=== PATIENT | female | born 1945 | race Two or more races ===

== ENCOUNTER 2020-01-22 09:38 | Outpatient (CLI) | payer OTHER ==
[~2020-01-22 09:38] MED LIST: TESSALON PERLE100 MG PO; TUSSI-ORGANIDI118 M1 PO; TUSSIONEX PENNKI5 ML PO
== END 2020-01-22 09:44 | disposition home or self-care (01) ==
LOC: TOM 09:38
PROVIDERS: ATTEND Internal Medicine Gastroenterology
DX: K59.09 Other constipation (principal); R10.11 Right upper quadrant pain; R12 Heartburn; R19.5 Other fecal abnormalities

== ENCOUNTER 2020-12-14 00:45 | Emergency (ER) | payer OTHER ==
[~2020-12-14] VITALS: Ht 160 cm; Wt 86.2 kg
[2020-12-14] MEDS ORDERED: FAMOTIDINE40 MG PO (01:01)
[2020-12-14] MEDS ORDERED: METOPROLOL SUCC50 MG PO (01:02)
[2020-12-14] MEDS ORDERED: PANTOPRAZOLE SO40 MG PO (01:02)
[2020-12-14] MEDS ORDERED: RAMIPRIL10 MG PO (01:02)
[2020-12-14] MEDS ORDERED: NABUMETONE750 MG PO (01:02)
[2020-12-14] MEDS ORDERED: METFORMIN HCL500 M1 PO (01:03)
[2020-12-14] MEDS ORDERED: RESTORIL30 MG PO (01:03)
[2020-12-14] MEDS ORDERED: ALPRAZOLAM0.5 MG PO (01:03)
[2020-12-14] MEDS ORDERED: SIMVASTATIN40 MG PO (01:03)
== END 2020-12-14 03:46 | disposition home or self-care (01) ==
LOC: ER 00:45
DX: H53.8 Other visual disturbances (principal); I16.1 Hypertensive emergency; I10 Essential (primary) hypertension

== ENCOUNTER → 2021-01-02 08:50 | Outpatient (CLI) | payer OTHER ==
[~2021-01-02 08:50] MED LIST changes: +ALPRAZOLAM0.5 MG PO; +FAMOTIDINE40 MG PO; +METFORMIN HCL500 M1 PO; +METOPROLOL SUCC50 MG PO; +NABUMETONE750 MG PO; +PANTOPRAZOLE SO40 MG PO; +RAMIPRIL10 MG PO; +RESTORIL30 MG PO; +SIMVASTATIN40 MG PO
== END | disposition home or self-care (01) ==
LOC: NUCLEAR 08:50
DX: I74.3 Embolism and thrombosis of arteries of the lower extremities (principal)

== ENCOUNTER 2021-01-03 09:48 | Outpatient (CLI) | payer OTHER | END 2021-01-03 09:49 | disposition home or self-care (01) | LOC: NUCLEAR 09:48 | DX: I74.3 Embolism and thrombosis of arteries of the lower extremities (principal) ==

== ENCOUNTER 2021-04-17 09:48 | Outpatient (CLI) | payer OTHER | END 2021-04-17 09:56 | disposition home or self-care (01) | LOC: SONOGRAMA 09:48 | PROVIDERS: ATTEND Internal Medicine Gastroenterology | DX: K59.09 Other constipation (principal); R12 Heartburn; K62.5 Hemorrhage of anus and rectum; R14.0 Abdominal distension (gaseous); K31.7 Polyp of stomach and duodenum ==

== ENCOUNTER 2021-06-15 08:17 | Outpatient (CLI) | payer OTHER | END 2021-06-15 08:26 | disposition home or self-care (01) | LOC: TOM 08:17 | PROVIDERS: ATTEND Internal Medicine Gastroenterology | DX: K57.90 Diverticulosis of intestine, part unspecified, without perforation or abscess without bleeding (principal); K59.09 Other constipation; K44.9 Diaphragmatic hernia without obstruction or gangrene; K57.30 Diverticulosis of large intestine without perforation or abscess without bleeding; K64.0 First degree hemorrhoids; K29.70 Gastritis, unspecified, without bleeding; E73.8 Other lactose intolerance; K31.89 Other diseases of stomach and duodenum; K22.89 Other specified disease of esophagus; K31.7 Polyp of stomach and duodenum; Z80.0 Family history of malignant neoplasm of digestive organs ==

== ENCOUNTER 2021-10-18 08:48 | Outpatient (CLI) | payer OTHER | END 2021-10-18 08:55 | disposition home or self-care (01) | LOC: SONOGRAMA 08:48 | PROVIDERS: ATTEND Specialist | DX: M75.121 Complete rotator cuff tear or rupture of right shoulder, not specified as traumatic (principal) ==

== ENCOUNTER 2021-11-27 11:06 | Outpatient (CLI) | payer OTHER | END 2021-11-27 11:07 | disposition home or self-care (01) | LOC: NUCLEAR 11:06 | PROVIDERS: ATTEND General Practice | DX: M81.0 Age-related osteoporosis without current pathological fracture (principal); Z91.041 Radiographic dye allergy status; Z88.6 Allergy status to analgesic agent; Z88.5 Allergy status to narcotic agent; Z88.8 Allergy status to other drugs, medicaments and biological substances ==

== ENCOUNTER 2022-01-02 11:19 | Outpatient (CLI) | payer OTHER | END 2022-01-02 11:20 | disposition home or self-care (01) | LOC: SONOGRAMA 11:19 | PROVIDERS: ATTEND General Practice | DX: D21.0 Benign neoplasm of connective and other soft tissue of head, face and neck (principal) ==

== ENCOUNTER 2022-01-05 18:54 | Emergency (ER) | payer OTHER ==
[~2022-01-05] VITALS: Ht 162.6 cm; Wt 86.2 kg
[2022-01-05] MEDS ORDERED: ALPRAZOLAM0.25 MG PO (19:28)
== END 2022-01-05 21:21 | disposition home or self-care (01) ==
LOC: ER 18:54
DX: R53.81 Other malaise (principal); Z88.0 Allergy status to penicillin; Z91.041 Radiographic dye allergy status; Z88.6 Allergy status to analgesic agent; E11.9 Type 2 diabetes mellitus without complications; Z79.84 Long term (current) use of oral hypoglycemic drugs; Z20.822 Contact with and (suspected) exposure to COVID-19; M19.90 Unspecified osteoarthritis, unspecified site

== ENCOUNTER 2022-02-01 08:32 | Outpatient (CLI) | payer OTHER ==
[~2022-02-01 08:32] MED LIST changes: +ALPRAZOLAM0.25 MG PO
== END 2022-02-01 08:36 | disposition home or self-care (01) ==
LOC: SONOGRAMA 08:32
PROVIDERS: ATTEND Pathology Anatomic Pathology & Clinical Pathology
DX: D21.0 Benign neoplasm of connective and other soft tissue of head, face and neck (principal); D44.0 Neoplasm of uncertain behavior of thyroid gland

== ENCOUNTER 2022-05-08 11:30 | Emergency (ER) | payer OTHER ==
[~2022-05-08] VITALS: Ht 162.6 cm; Wt 83.9 kg
[2022-05-08] MEDS ORDERED: AMOX1TAB5 PO (16:20)
== END 2022-05-08 16:28 | disposition home or self-care (01) ==
LOC: ER 11:30
DX: J00 Acute nasopharyngitis [common cold] (principal); Z88.6 Allergy status to analgesic agent; Z88.8 Allergy status to other drugs, medicaments and biological substances; E11.9 Type 2 diabetes mellitus without complications; Z79.84 Long term (current) use of oral hypoglycemic drugs; I10 Essential (primary) hypertension; Z20.822 Contact with and (suspected) exposure to COVID-19

== ENCOUNTER 2022-05-12 10:21 | Emergency (ER) | payer OTHER ==
[~2022-05-12] VITALS: Ht 162.6 cm; Wt 84.4 kg
[~2022-05-12 10:21] MED LIST changes: +AMOX1TAB5 PO
[2022-05-12] MEDS ORDERED: AMLODIPINE BESYL5 MG PO (10:42)
== END 2022-05-12 19:09 ==
LOC: ER
DX: J06.9 Acute upper respiratory infection, unspecified (principal); B34.9 Viral infection, unspecified; E11.9 Type 2 diabetes mellitus without complications; Z79.84 Long term (current) use of oral hypoglycemic drugs; I10 Essential (primary) hypertension; Z88.8 Allergy status to other drugs, medicaments and biological substances

== ENCOUNTER 2022-05-21 01:01 | Emergency (ER) | payer OTHER ==
[~2022-05-21] VITALS: Ht 162.6 cm; Wt 84.4 kg
[~2022-05-21 01:01] MED LIST changes: +AMLODIPINE BESYL5 MG PO
[2022-05-21] MEDS ORDERED: ANUSOL-HC30 G2 TOP (05:23)
== END 2022-05-21 05:27 ==
LOC: ER 01:01
DX: N93.9 Abnormal uterine and vaginal bleeding, unspecified (principal); K62.5 Hemorrhage of anus and rectum; K64.9 Unspecified hemorrhoids; I10 Essential (primary) hypertension; E11.9 Type 2 diabetes mellitus without complications; Z79.84 Long term (current) use of oral hypoglycemic drugs; Z88.9 Allergy status to unspecified drugs, medicaments and biological substances

== ENCOUNTER 2022-08-13 10:43 | Outpatient (CLI) | payer OTHER ==
[~2022-08-13 10:43] MED LIST changes: +ANUSOL-HC30 G2 TOP
== END 2022-08-13 10:45 | disposition home or self-care (01) ==
LOC: SONOGRAMA 10:43
PROVIDERS: ATTEND Pathology Anatomic Pathology & Clinical Pathology
DX: C85.11 Unspecified B-cell lymphoma, lymph nodes of head, face, and neck (principal); D49.9 Neoplasm of unspecified behavior of unspecified site; C83.31 Diffuse large B-cell lymphoma, lymph nodes of head, face, and neck

== ENCOUNTER 2022-08-31 11:41 | Outpatient (CLI) | payer OTHER | END 2022-08-31 11:51 | disposition home or self-care (01) | LOC: TOM 11:41 | PROVIDERS: ATTEND Specialist | DX: C85.91 Non-Hodgkin lymphoma, unspecified, lymph nodes of head, face, and neck (principal) ==

== ENCOUNTER → 2025-01-09 | Emergency (ER) | payer OTHER ==
[~2025-01-09] VITALS: Ht 160 cm; Wt 83.0 kg
[2025-01-09 14:05] LABS: BASO % 0.3 % (0.1-1.2); EOS # 0.01 (0.04-0.54); EOS % 0.1 % (0.7-7.0); HEMATOCRIT 37.2 % (34.1-44.9); HEMOGLOBIN 12.5 g/dL (11.2-15.7); LYMPH # 1.16 (1.18-3.74); LYMPH % 13.1 % (19.3-53.1); MEAN CORPUSCULAR HEMOGLOBIN 27.8 pg (25.6-32.2); NEUT % 71.5 % (34.0-71.1); PLATELET COUNT 363 K/uL (163-369); RED BLOOD COUNT 4.49 M/uL (3.93-5.22); RED CELL DISTRIBUTION WIDTH 13.6 % (11.6-14.4)
[2025-01-09 14:07] LABS: MONO % 14.7 % (4.7-12.5)
[2025-01-09 14:29] LABS: PH,URINE 6.5 (5.0-8.0); URINE APPEARANCE Clear; URINE BILIRRUBIN Negative (NEGATIVE); URINE BLOOD Negative; URINE COLOR Yellow; URINE GLUCOSE Negative (NEGATIVE); URINE KETONE Trace (NEGATIVE); URINE LEUKOCYTE Small; URINE NITRATE Negative; URINE PROTEIN Negative (NEGATIVE)
[2025-01-09 14:30] LABS: URINE BACTERIA 46.4 uL (0.0-1933); URINE EPITHELIAL CELLS 10.4 uL (0.0-38.8); URINE RBC 10.3 uL (0.0-20.8); URINE WBC 3.6 uL (0.0-23.2)
[2025-01-09 14:45] LABS: INFLUENZA A AG NEGATIVE (NEGATIVE); INFLUENZA B AG NEGATIVE (NEGATIVE)
[2025-01-09 14:48] LABS: COVID-19 AG NEGATIVE (NEGATIVE)
== END | disposition home or self-care (01) ==
LOC: ER 10:00
PROVIDERS: General Practice
DX: B34.9 Viral infection, unspecified (principal); I10 Essential (primary) hypertension; Z85.72 Personal history of non-Hodgkin lymphomas; E78.00 Pure hypercholesterolemia, unspecified; Z20.822 Contact with and (suspected) exposure to COVID-19; E11.9 Type 2 diabetes mellitus without complications; Z79.84 Long term (current) use of oral hypoglycemic drugs; Z91.041 Radiographic dye allergy status; Z88.8 Allergy status to other drugs, medicaments and biological substances